=== PATIENT | female | born 1970 | race Caucasian/White ===

== ENCOUNTER 2017-01-07 16:46 | Emergency (ER) | payer OTHER ==
[~2017-01-07] VITALS: Ht 157.5 cm; Wt 72.6 kg
--- NOTE | 2017-01-07 17:51 | RADIOLOGY REPORT ---
EXAMINATION: XR FOOT, LEFT CLINICAL INFORMATION: Left foot pain. COMPARISON: No relevant prior studies are available for comparison. TECHNIQUE: AP, lateral, and oblique views of the left foot were obtained. FINDINGS: Orthopedic hardware is partially visualized within the distal left tibia. There is a minimally displaced transverse fracture through the base of the 5th metatarsal with a fracture gap of approximately 1 mm. No additional fracture is identified. No joint space narrowing or marginal osteophytosis. No osseous erosion. No abnormal soft tissue calcification. IMPRESSION: Minimally displaced transverse fracture at the base of the 5th metatarsal.
--- NOTE | 2017-01-07 17:59 | ED UPPER/LOWER EXTREMITY COMPL ---
History of Present Illness General Chief Complaint: Foot or Ankle Injury Stated Complaint: PT HURT HER LEFT FOOT Source: patient Exam Limitations: no limitations Vital Signs & Intake/Output Vital Signs & Intake/Output Vital Signs Date Time Temp Pulse Resp B/P Pulse O2 O2 Flow FiO2 Ox Delivery Rate 01/07 1656 97.4 106 18 147/87 98 Room Air Allergies Coded Allergies: penicillin V (UNKNOWN 02/02/16) Reconcile Medications Bupropion HCl (Bupropion XL) 150 MG TAB.ER.24H 1 TAB PO DAILY DEPRESSION ( Reported) Cannabis (Marijuana Oil) 1 amp AMP 1 A INH PRN PRN PAIN (Reported) Cyanocobalamin (Vitamin B-12) (Cyanocobalamin Injection) 1,000 MCG/ML VIAL 1 ML IM Q30D VITAMINE (Reported) Ergocalciferol (Vitamin D2) (Vitamin D2) 50,000 UNIT CAPSULE 1 CAP PO QW VITAMIN (Reported) Glatiramer Acetate (Copaxone) 40 MG/ML SYRINGE 1 INJ SC 3XW MS (Reported) Hydrocodone/Acetaminophen (Vicodin 5-300 MG Tablet) 5 MG-300 MG TABLET 1 TAB PO Q4-6 PRN PAIN Propranolol HCl (Propranolol HCl ER) 80 MG CAP.SA.24H 1 CAP PO TID HEART HEALTH (Reported) Trazodone HCl 50 MG TABLET 1 TAB PO QPM SLEEP AIDE (Reported) Triage Note: 46 YO FEMALE TO TRIAGE C/O L FOOT PAIN. STATES SHE WAS ON A STEP STOOL AND SHE SETPPED DOWN WITH HER R FOOT FIRST AND MISSED SOPHIE STEP ON THE L FOOT. BRUISING NOTED TO TOP OF L FOOT. Triage Nurses Notes Reviewed? yes Onset: Abrupt Duration: constant Timing: recent history Severity: severe Severity Numbers: 7 Method of Injury: fall : No Patient currently breastfeeds: No HPI: Patient is a 46-year-old female with a past medical history of multiple sclerosis who presents emergency room stating that 2 days ago patient was on a step stool approximately 6 inches off the ground where she stepped off twisted her left foot since has been complaining of lateral foot pain with swelling. Patient does have a rolling walker where she has been nonweightbearing. Patient has taken marijuana for her pain. Denies any ankle pain or knee pain. (ANA DEGROOT,GARCÍA) Past History Travel History Traveled to [place] past 21 day No Medical History Any Pertinent Medical History? 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 No (GARCÍA GLEZ) Review of Systems Review of Systems Constitutional: Reports: no symptoms. EENTM: Reports: no symptoms. Respiratory: Reports: no symptoms. Cardiovascular: Reports: no symptoms. Gastrointestinal/Abdominal: Reports: no symptoms. Genitourinary: Reports: no symptoms. Musculoskeletal: Reports: see HPI. Skin: Reports: no symptoms. Neurological/Psychological: Reports: no symptoms. Hematologic/Endocrine: Reports: no symptoms. Immunological: Reports: no symptoms. All Other Systems: Reviewed and Negative (GARCÍA GLEZ) Physical Exam Physical Exam General Appearance: no apparent distress, alert, comfortable Neurologic/Tendon: normal sensation, normal motor functions, normal tendon functions, responds to pain, no evidence tendon injury Skin: intact, normal color, warm/dry Comments: Well-developed well-nourished no apparent distress. HEENT: Atraumatic, extraocular motion intact Neck: Supple, no lymphadenopathy Back: Nontender Respiratory: No respiratory distress Extremities: Left knee nontender full active range of motion normal inspection Left ankle normal inspection nontender full active range of motion Left foot noted swelling and lateral point tenderness noted pedal pulses +2 Capillary refill less than 2 seconds Left lower extremity dermatomes intact Neuro: Alert and oriented x3 Psych: Mood affect normal, normal memory normal judgment. (GARCÍA GLEZ) Progress Differential Diagnosis: arterial insufficiency, compartment syndrome, contusion, dislocation, DVT, fracture, gout, septic arthritis, sprain, tendon injury Plan of Care: Using web roll for compression I applied copious amounts around foot and ankle a posterior splint was applied by me with Patrice wrap Pre-and post-neurovascular was intact. Patient had a rolling walker for nonweightbearing status. Patient had requested to follow-up with Dr. Blum Diagnostic Imaging: Viewed by Me: Radiology Read. Radiology Impression: acute abnormality, fracture Comments: PATIENT: SHARIFA FISCHER PRESENT AGE: 46 PATIENT ACCOUNT NO: [id number] : 72 LOCATION: [facility] ORDERING PHYSICIAN: VANCE DAHL DO (TBS) SERVICE DATE: 01/07/17 EXAM TYPE: RAD - XRY-FOOT COMPLETE, LEFT EXAMINATION: XR FOOT, LEFT CLINICAL INFORMATION: Left foot pain. COMPARISON: No relevant prior studies are available for comparison. TECHNIQUE: AP, lateral, and oblique views of the left foot were obtained. FINDINGS: Orthopedic hardware is partially visualized within the distal left tibia. There is a minimally displaced transverse fracture through the base of the 5th metatarsal with a fracture gap of approximately 1 mm. No additional fracture is identified. No joint space narrowing or marginal osteophytosis. No osseous erosion. No abnormal soft tissue calcification. IMPRESSION: Minimally displaced transverse fracture at the base of the 5th metatarsal. (GARCÍA GLEZ) Departure Departure Disposition: HOME OR SELF CARE Condition: Stable Clinical Impression Primary Impression: Fracture of fifth metatarsal bone of left foot Referrals: JUSTIN BLUM MD PATIENT HAS NO PRIMARY CARE DR (PCP/Family) Additional Instructions: As discussed begin to elevate her foot for swelling. Begin the prescription of Vicodin for pain as directed. Continue to not put any weight on her left foot. Continue use your rolling walker for stability and support. Continue to use the splint that has been applied to the emergency room at all Times until you follow up with orthopedic doctor. On Monday follow-up with orthopedic Dr. Blum for further evaluation treatment. Prescription is waiting at [facility] pharmacy. If symptoms worsen return to emergency room Departure Forms: Customer Survey General Discharge Information Prescriptions: Current Visit Scripts Hydrocodone/Acetaminophen (Vicodin 5-300 MG Tablet) 1 TAB PO Q4-6 PRN PAIN #15 TAB (GARCÍA GLEZ) PA/PIERCING SPECIALIST Co-Sign Statement Statement: ED Attending supervision documentation- [] I saw and evaluated the patient. I have also reviewed all the pertinent lab results and diagnostic results. I agree with the findings and the plan of care as documented in the PA's/PIERCING SPECIALIST's documentation. x I have reviewed the ED Record and agree with the PA's/PIERCING SPECIALIST's documentation. [] Additions or exceptions (if any) to the PAs/PIERCING SPECIALIST's note and plan are summarized below: [] (VICTOR M TRACY,BLAINE) Procedures Splinting Location: left foot Manual Alignment Performed: No Hand-Made Type: orthoglass Splint: left posterior ankle and foot Splint Applied By: splint applied by me Pre-Proc Neuro Vasc Exam: normal Post-Proc Neuro Vasc Exam: normal (ANA DEGROOT,GARCÍA)
[2017-01-07] MEDS ORDERED: VITAMIN D250000 UNIT PO (18:17)
[2017-01-07] MEDS ORDERED: TRAZODONE HCL50 M1 PO (18:18)
[2017-01-07] MEDS ORDERED: CYANOCOBAL1000 MCG/2 IM (18:19)
[2017-01-07] MEDS ORDERED: PROPRANOLOL HCL80 M2 PO (18:19)
[2017-01-07] MEDS ORDERED: BUPROPION XL150 MG PO (18:19)
[2017-01-07] MEDS ORDERED: COPAXONE40 MG/1 ML SC (18:21)
[2017-01-07] MEDS ORDERED: MARI INH (18:22)
[2017-01-07] MEDS ORDERED: VICODIN 5-3001 EACH PO (18:24)
[2017-01-07 18:37] VITALS: BP 132/74
== END 2017-01-07 18:38 ==
LOC: ERH 16:46
DX: S92.352A Displaced fracture of fifth metatarsal bone, left foot, initial encounter for closed fracture (principal); X50.9XXA Other and unspecified overexertion or strenuous movements or postures, initial encounter
CPT/HCPCS: 73630-LT